=== PATIENT | male | born 1990 | race Caucasian/White ===

== ENCOUNTER 2016-12-03 14:46 | Emergency (ER) | payer OTHER ==
[~2016-12-03] VITALS: Ht 198.1 cm; Wt 102.3 kg
[2016-12-03 14:50] VITALS: BP 139/78; PULSE 88; RESP 16; O2SAT 98
--- NOTE | 2016-12-03 15:07 | ED.REPORT ---
HPI-Extremity Problem Upper Date of Service Dec 03, 2016 ED Provider: Mark Mondragon MD The patient is a 26 year old male who presents to the emergency department complaining of a right upper extremity injury. The patient states that an oven salter fell on his right wrist/forearm last night. Most of his pain is located to his right forearm and both sides of his wrists. The pain has worsened throughout the day. He is still able to move his fingers but has increased pain with movement of his wrist. He denies any other injuries or trauma. He denies numbness or focal weakness. Nursing Notes Stated Complaint: R WRIST INJURY Chief Complaint: Extremity Trauma Nursing Notes Reviewed: Yes Allergies: Coded Allergies: No Known Allergies (Unverified , 12/03/16) Scheduled PRN Hydrocodone-Acetaminophen 5-325 mg (Hydrocodone-Acetaminophen 5-325 mg) 1 Each Tablet 1 TABLET PO Q4H PRN PRN For Pain General Time Seen by MD: 14:57 Chief Complaint Forearm injury right, Wrist injury right Hx Obtained From: Patient Arrived By: Walk-in Onset Occurred: Yesterday Symptom Duration: Since onset Location: : Forearm right: Wrist right Quality: Painful Severity: Current: Moderate Severity: Maximum: Moderate Pertinent Negative: Pt denies other symptoms Recent Healthcare: No recent doctor visit, No recent hospitalization Similar Sx Previous: No Past Medical History Past Medical History Hx of heart murmur Family History Noncontributory Smoking History Unknown if Ever Smoker Social History Other Social History: Good social support, Local resident Ambulatory Status Independent Review of Systems Musculoskeletal: Reports: Extremity pain, Joint pain, Denies: Back pain, Neck pain Neurologic: Denies: Focal weakness, Headache, Numbness Complete sys rev & neg: except as marked. Physical Exam Initial Vital Signs Vital Signs (First) Date Time Temp Pulse Resp B/P Pulse Ox O2 Delivery O2 Flow Rate FiO2 12/03/16 14:50 37.0 88 16 139/78 98 Room Air Initial VS: Reviewed Head / Eyes: Atraumatic, Normocephalic, PERRL ENT: Mucous membranes moist, Conjunctiva normal, No scleral icterus Neck: Supple, Non-tender, Full range of motion Respiratory: Breath sounds normal, Clear to auscultation, No respiratory distress Cardiovascular: Regular rate & rhythm, Heart sounds normal, Intact distal pulses Abdomen / GI: Soft, Non-tender, No guarding, No rebound, No distention Lymphatic: No lymphadenopathy Lower Extremities: Vascular intact, Neuro intact, No swelling, No tenderness Skin: Warm, Dry, No cyanosis Neurologic: Alert, Oriented, Nonfocal Psychiatric: Mood/affect normal, Behavior normal, Normal thought content General/Constitutional: Awake, Alert, Cooperative Wrist / Hand: Neurologic intact, Vascular intact There is no obvious deformity at the wrist or hand. Good radial pulses. No tenderness of the ulnar aspect of the wrist. He does have tenderness about the scaphoid region. There is no palpable deformity. There is no tenderness about the distal radius. Interpretation & Diagnostics X-Ray Interpretation Xray Interpretation: IMPRESSION: No acute fracture. No osseous lesion. If symptoms and/or clinical suspicion for pathology persist, further assessment with repeat, or advanced imaging (e.g., CT, MRI, or bone scan) may be helpful for further assessment. Dictated by: Myriam Gamez M.D. on 12/03/2016 at 15:42 X-Ray Ordered: Wrist right Interpretation / Wet Read by: Interpret - Radiologist Procedures Splint Application - Fx Mgt Splint Application- Fx Mgt: thumb spica splint Time: 16:25 Procedure Performed by: Survey Cad Technician Precise Anatomic Location: right wrist Definitive Fracture Care: Pain control, Splint Post-Procedure / Complications: Cap refill normal, Post splint vascular nl, Post splint neuro nl, Condition improved, Tolerated procedure well, Patient stable Splint Post-Application Eval Extremity Condition: Cap refill < 2 sec, Distal sensation intact, Distal motor Intact, No compartment syndrome Re-Eval/Medical Decision Med Decision/Clinical Course The patient is a 26 year old male who presents to the emergency department complaining of a right upper extremity injury. The patient states that an oven salter fell on his right wrist/forearm last night. Most of his pain is located to his right forearm and both sides of his wrists. The pain has worsened throughout the day. He is still able to move his fingers but has increased pain with movement of his wrist. He denies any other injuries or trauma. He denies numbness or focal weakness. Through the emergency department the patient is afebrile stable vital signs and in no apparent distress. Plain films of the left wrist demonstrate no acute fracture. He has some mild tenderness overlying the scaphoid region and therefore I placed him in a thumb spica splint. He will follow up closely with his primary care physician in one week for repeat x-rays. My suspicion is relatively low for scaphoid injury but this remains on the differential. No evidence of neurovascular injury. Skin is intact. Pain treated with [place]. Advised to take ibuprofen and use ice packs. Limited supply [place] provided for breakthrough pain. Prior to discharge follow -up and return precautions were reviewed in detail with the patient who verbalized understanding and agreement with the plan. The patient was discharged in stable condition. Source of Hx: Old records Re-Evaluation/Progress : Time of Eval: 16:25 Re-Evaluation/Progress Note: Discussed x-ray results, diagnosis, and plan for discharge. All questions were addressed. Counseled Regarding: Diagnosis, Need for follow-up, When/why to return to ED Discharge & Departure Impression: Primary Impression: Wrist injury Encounter type: initial encounter Laterality: right Qualified Code: S69.91XA - Unspecified injury of right wrist, hand and finger(s), initial encounter Additional Impression: Right wrist sprain Encounter type: initial encounter Qualified Code: S63.501A - Unspecified sprain of right wrist, initial encounter Disposition: Home Discharge Condition All VS Reviewed: Yes Condition: Stable Patient Instructions: Wrist Injury (ED) Additional Instructions: Thank you for seeking care at the emergency room. Our primary goal today in the ED was to evaluate you for any life-threatening conditions. Your evaluation was reassuring. There are no obvious fractures seen on your x-ray today. There is a possible that there may be a small fracture that is not seen on the x-ray. Make sure to wear the splint and followup with your regular doctor in 1 week for re-evaluation. If you are still in pain you may want to have repeat x-rays. Take Ibuprofen 600 mg three times a day. You can use the [place] as needed for breakthrough pain. You can also try applying ice to the painful areas if this helps. You should return to the ED immediately if you develop increased pain, numbness , tingling, weakness or any other concerning signs or symptoms. Thank you for letting us partake in your care today. Narcotic Pain Medicine- You have been prescribed a narcotic for pain relief. These drugs are usually combined with acetaminophen (Tylenol#3, Percocet, Darvocet, Anexsia, Vicodin) or aspirin (Empirin#3, Percodan, Synalogs-DC) for increased effect. Narcotics act on the central nervous system to reduce pain; they also impair mental alertness and physical abilities. We advise you not to drink alcohol, drive a car, or operate dangerous equipment when you are taking these drugs. You can lessen stomach irritation from your medicine by taking it with meals or a full glass of water. Common side effects of narcotics are: Nausea and vomiting, heartburn, constipation, dizziness, sleepiness, and mood changes. If you have bothersome side effects or symptoms of an allergic reaction (itching, hives, rash), stop taking your medicine and call your doctor or the emergency room right away. Please keep your narcotic medicine well out of the reach of children. Scribe Attestation Portions of this note were transcribed by Nany Patel. I, Dr. Mondragon personally performed the history, physical exam and medical decision-making; I reviewed and confirmed the accuracy of the information in the transcribed note. Signed by: Mohinder Ware, 12/03/2016 at 1635. Mark Mondragon MD Dec 03, 2016 15:07 Nany Patel Dec 03, 2016 15:34
--- NOTE | 2016-12-03 15:44 | DRSVH ---
PROCEDURE: X-RAY RIGHT WRIST COMPLETE, MINIMUM THREE VIEWS ([id number]) INDICATIONS: direct blow TECHNIQUE: 4 views of the wrist were acquired. COMPARISON: None. FINDINGS: Bones: No fractures or dislocations. No suspicious bony lesions. Scaphoid view: Negative. Soft tissues: No suspicious soft tissue calcifications. IMPRESSION: No acute fracture. No osseous lesion. If symptoms and/or clinical suspicion for patholog y persist, further assessment with repeat, or advanced imaging (e.g., CT, MRI, or bone scan) may be h elpful for further assessment. Dictated by: Myriam Gamez M.D. on 12/03/2016 at 15:42 Approved by: Myriam Gamez M.D. on 12/03/2016 at 15:43
[2016-12-03] MEDS ORDERED: HYDR-4003 PO (16:26)
[2016-12-03] MEDS ORDERED: HYDROcodone-APAP 5-325 mg Tablet PO ONE (16:30)
== END 2016-12-03 17:00 | disposition home or self-care (01) ==
LOC: SED 14:54
DX: S69.91XA Unspecified injury of right wrist, hand and finger(s), initial encounter (principal); S63.501A Unspecified sprain of right wrist, initial encounter; W23.0XXA Caught, crushed, jammed, or pinched between moving objects, initial encounter; Y93.89 Activity, other specified; Y92.9 Unspecified place or not applicable; Y99.8 Other external cause status